=== PATIENT | female | born 2000 | race African-American/Black ===

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

== ENCOUNTER 2022-06-17 12:57 | Inpatient (IN) | payer MEDICAID ==
[~2022-06-17] VITALS: Ht 152.4 cm; Wt 67.1 kg
[2022-06-17] MEDS ORDERED: ZOLPIDEM TARTRATE 10 MG TABLET PO PRN (18:45)
[2022-06-17] MEDS ORDERED: LORazepam 2 MG TABLET PO PRN (18:45)
[2022-06-17] MEDS ORDERED: HALOPERIDOL 5 MG TABLET PO PRN (18:45)
[2022-06-17] MEDS ORDERED: INFLUENZA VIRUS VACCINE QVS 2022-23 (6MO+)/PF 60 MCG/0.5 ML SYRINGE IM. ONE (18:45)
[2022-06-17] MEDS ORDERED: PNEUMOCOCCAL VACCINE POLYVALENT 0.5 ML VIAL [PPSV23] IM. ONE (21:00)
[2022-06-17 21:55] VITALS: BP 149/96
[2022-06-18] VITALS (7 sets, daily range): BP systolic 121–173; BP diastolic 79–116
[2022-06-18] MEDS ORDERED: OMEPRAZOLE 20 MG CAPSULE PO PRN (05:45)
[2022-06-18] MEDS ORDERED: BACITRACIN 28 GM OINTMENT TP PRN (05:45)
[2022-06-18] MEDS ORDERED: PETROLATUM,WHITE 28 GM JELLY TP PRN (05:45)
[2022-06-18] MEDS ORDERED: ONDANSETRON HCL 4 MG TABLET PO PRN (05:45)
[2022-06-18] MEDS ORDERED: IBUPROFEN 600 MG TABLET PO PRN (05:45)
[2022-06-18] MEDS ORDERED: DOCUSATE SODIUM 100 MG CAPSULE PO PRN (05:45)
[2022-06-18] MEDS ORDERED: BENZOCAINE/MENTHOL LOZENGE PO PRN (05:45)
[2022-06-18] MEDS ORDERED: MAG HYDROX/AL HYDROX/SIMETH ES 30 ML SUSPENSION UDCUP PO PRN (05:45)
[2022-06-18] MEDS ORDERED: LOPERAMIDE HCL 2 MG CAPSULE PO PRN (05:45)
[2022-06-18] MEDS ORDERED: ACETAMINOPHEN 325 MG TABLET PO PRN (05:45)
[2022-06-18] MEDS ORDERED: MAGNESIUM HYDROXIDE SUSPENSION 30 ML UDCUP PO PRN (05:45)
[2022-06-18] MEDS ORDERED: ALBUTEROL SULFATE HFA 90 MCG/PUFF 8 GM INHALER IH PRN (05:45)
[2022-06-18] MEDS ORDERED: NICOTINE POLACRILEX 2 MG LOZENGE PO PRN (08:15)
[2022-06-18] MEDS: CloNIDine HCL 0.1 MG TABLET PO PRN (09:51)
[2022-06-18] MEDS ORDERED: LIDOCAINE/PF 1% 2 ML VIAL IM ONE (21:15)
[2022-06-18] MEDS: MetroNIDAZOLE 500 MG TABLET PO SCH (22:47)
[2022-06-18] MEDS: DOXYCYCLINE HYCLATE 100 MG TABLET PO SCH (22:47)
[2022-06-19] VITALS: BP 127/80
[2022-06-19 04:00] VITALS: BP 141/90
[2022-06-19 04:05] VITALS: BP 126/78
[2022-06-19 04:10] VITALS: BP 140/90
[2022-06-19 08:05] LABS: HEMOGLOBIN A1C 5.3 % (3.8-5.6)
[2022-06-19] MEDS: MetroNIDAZOLE 500 MG TABLET PO SCH (08:31)
[2022-06-19] MEDS: DOXYCYCLINE HYCLATE 100 MG TABLET PO SCH (08:31)
[2022-06-19 08:36] LABS: CHOL/HDL RATIO 2.3 (3.9-5.7)
[2022-06-19] MEDS: CloNIDine HCL 0.1 MG TABLET PO PRN (08:54)
[2022-06-19] MEDS ORDERED: LACTOBAC ACID/BULG/BIFID/THERM TABLET PO SCH (09:00)
[2022-06-19 09:09] VITALS: BP 140/117
[2022-06-19 09:52] LABS: FREE T4 (FREE THYROXINE) 1.06 ng/dL (0.76-1.46); THYROID STIMULATING HORMONE 1.42 uIU/mL (0.36-3.74)
== END 2022-06-19 12:06 | disposition home or self-care (01) | DRG 753 ==
LOC: B3A 17:58 → B2S 06-18 14:53
PROVIDERS: ADMIT Psychiatry & Neurology Psychiatry; ATTEND Psychiatry & Neurology Psychiatry
DX: F31.9 Bipolar disorder, unspecified (principal); T74.21XA Adult sexual abuse, confirmed, initial encounter; F10.129 Alcohol abuse with intoxication, unspecified; F20.9 Schizophrenia, unspecified; F41.9 Anxiety disorder, unspecified; G47.00 Insomnia, unspecified; K59.00 Constipation, unspecified; L30.9 Dermatitis, unspecified; Z20.822 Contact with and (suspected) exposure to COVID-19
CPT/HCPCS: 80061; 83036; 84439; 84443; 90686; J0696; J3490